=== PATIENT | female | born 1940 | race Caucasian/White ===

== ENCOUNTER 2017-05-13 12:37 | Emergency (ER) | payer MEDICARE, OTHER ==
--- NOTE | 2017-05-13 13:05 | EDM.PDOC ---
ED HPI GENERAL MEDICAL PROBLEM - General Chief Complaint: Back Pain or Injury Stated Complaint: BACK PAIN Time Seen by Provider: 05/13/17 12:59 Source of Information: Reports: Patient, Family (spouse) History Limitations: Reports: No Limitations - History of Present Illness INITIAL COMMENTS - FREE TEXT/NARRATIVE: 77-year-old female reports to the ED with acute onset of right upper quadrant under under the costal margin pain radiating to her right side and into her infrascapular area on the right side and also pain in underneath the lower retrosternal area. This pain came on about 10:00 this morning and is eased up substantially compared to when started. Of note for breakfast this morning which was about 8:30 she had a combination of sausage and eggs ,cheese ,barry i.e. a very fatty diet. She did feel nauseated but never did vomit. She states her bowels work normally this morning. Previous abdominal surgery includes a total abdominal hysterectomy and BSO and likely a coincidental appendectomy. So had a right inguinal hernia repair last year. Has no known heart disease. At the time of my exam pain was pretty well gone. She did appreciate that the pain was worsened by deep breathing when it was at its peak. 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) (None.) Right Lower Back Pain Score (Numeric/FACES): 0 - Related Data Allergies Allergy/AdvReac Type Severity Reaction Status Date / Time No Known Allergies Allergy Verified 05/13/17 12:41 Home Meds: Home Meds Levothyroxine Sodium 88 mcg PO DAILY 09/30/14 [History] [employer] Supplements 1 pkg PO DAILY 09/12/15 [History] Hyoscyamine Sulfate [Levsin-Sl] 0.125 mg SL ASDIRECTED PRN #6 tab.subl 05/13/17 [Rx] Past Medical History Other HEENT History: wear bilateral hearing aids Gastrointestinal History: Reports: GERD Other Genitourinary History: Dribbling, wears pantyliner RN SOCIAL SERVICES History: Reports: Other OB/BYN History: Hysterectomy Endocrine/Metabolic History: Reports: Hypoparathyroidism - Past Surgical History GI Surgical History: Reports: Colonoscopy, Hernia Repair/Other Other Female Surgeries/Procedures: History of prolapse Other Musculoskeletal Surgeries/Procedures:: Left hip surgery Social & Family History - Tobacco Use Smoking Status *Q: Never Smoker Month Tobacco Last Used: 40 YEARS AGO Second Hand Smoke Exposure: No - Caffeine Use Caffeine Use: Reports: Coffee - Alcohol Use Days Per Week of Alcohol Use: 0 Number of Drinks Per Day: 0 Total Drinks Per Week: 0 - Recreational Drug Use Recreational Drug Use: No Drug Use in Last 12 Months: No - Living Situation & Occupation Living situation: Reports: Occupation: Retired ED ROS GENERAL - Review of Systems Review Of Systems: See Below Constitutional: Reports: No Symptoms HEENT: Reports: No Symptoms Respiratory: Reports: No Symptoms Cardiovascular: Reports: Chest Pain Endocrine: Reports: No Symptoms (See history of present illness) GI/Abdominal: Reports: Abdominal Pain (Right upper quadrant abdominal pain radiating around to the right flank along the costal margin and into the epigastrium and lower retrosternal area.), Constipation (Chronic constipation relieved by taking a stool softener daily. Bowels work well today.), Other ( Previous internal hemorrhoid repair.) : Reports: Frequency, Incontinence (Occasional stress-induced incontinence) Musculoskeletal: Reports: Joint Pain Skin: Reports: No Symptoms (Knees hips and neck and low back at times) Neurological: Reports: No Symptoms Psychiatric: Reports: No Symptoms ED EXAM, UPPER BACK/NECK PAIN - Physical Exam Exam: See Below Exam Limited By: No Limitations General Appearance: Alert, WD/WN, No Apparent Distress Eye Exam: Bilateral Eye: Normal Inspection (No jaundice.) Cardiovascular/Respiratory: Regular Rate, Rhythm, No M/R/G, Normal Peripheral Pulses, No JVD, Normal Breath Sounds GI/Abdominal: Normal Bowel Sounds, Soft, No Organomegaly, No Distention, No Abnormal Bruit, No Mass, Tender (Positive Elkins sign.), Other (Slight tympany to percussion throughout the upper abdomen.) Back Exam: Normal Inspection, Full Range of Motion. 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 As Tested, No Motor/Sensory Deficits, Alert, Normal Mood/Affect, Oriented x 3 Psychiatric: Normal Affect, Normal Mood Skin Exam: Normal Color, Warm/Dry Lymphatic: No Adenopathy EKG INTERPRETATION EKG Date: 05/13/17 Time: 13:10 Rhythm: NSR Rate (Beats/Min): 67 [place]: Normal P-Wave: Present QRS: Normal ST-T: Normal QT: Prolonged (Mildly prolonged at 411.) Course - Vital Signs Last Recorded V/S: Last Vital Signs Temp 36.7 C 05/13/17 12:41 Pulse 66 05/13/17 14:36 Resp 12 05/13/17 14:36 BP 130/68 05/13/17 14:36 Pulse Ox 99 05/13/17 14:36 - Orders/Labs/Meds Orders: Active Orders 24 hr Category Date Time Status EKG Documentation Completion [RC] STAT Care 05/13/17 13:00 Active Labs: Laboratory Tests 05/13/17 05/13/17 05/13/17 Range/Units 13:00 13:23 13:23 WBC 3.68 L (3.98-10.04) K/mm3 RBC 3.78 L (3.98-5.22) M/mm3 Hgb 11.8 (11.2-15.7) gm/L Hct 35.0 (34.1-44.9) % MCV 92.6 (79.4-94.8) fl MCH 31.2 (25.6-32.2) pg MCHC 33.7 (32.2-35.5) g/dl RDW Std Deviation 40.0 (36.4-46.3) fL Plt Count 237 (182-369) K/mm3 MPV 9.2 L (9.4-12.3) fl Neutrophils % (Manual) 82 H (40-60) % Band Neutrophils % 1 (0-10) % Lymphocytes % (Manual) 12 L (20-40) % Atypical Lymphs % 0 % Monocytes % (Manual) 5 (2-10) % Eosinophils % (Manual) 0 L (0.7-5.8) % Basophils % (Manual) 0 L (0.1-1.2) Platelet Estimate Adequate RBC Morph Comment Normal Sodium 137 (136-145) mEq/L Potassium 4.0 (3.5-5.1) mEq/L Chloride 103 (98-107) mEq/L Carbon Dioxide 29 (21-32) mEq/L Anion Gap 9.0 (5-15) BUN 16 (7-18) mg/dL Creatinine 1.3 H (0.55-1.02) mg/dL Est Cr Clr Drug Dosing 26.48 mL/min Estimated GFR (MDRD) 40 (>60) mL/min BUN/Creatinine Ratio 12.3 L (14-18) Glucose 146 H (83-115) mg/dL Calcium 9.0 (8.5-10.1) mg/dL Total Bilirubin 0.3 (0.2-1.0) mg/dL AST 16 (15-37) U/L ALT 20 (14-59) U/L Alkaline Phosphatase 71 (46-116) U/L CK-MB (CK-2) 0.9 (0-3.6) ng/ml Troponin I < 0.017 (0.00-0.056) ng/mL C-Reactive Protein < 0.2 (<1.0) mg/dL Total Protein 6.4 (6.4-8.2) g/dl Albumin 3.4 (3.4-5.0) g/dl Globulin 3.0 gm/dL Albumin/Globulin Ratio 1.1 (1-2) Amylase 104 (20-160) U/L Urine Color Yellow (Yellow) Urine Appearance Clear (Clear) Urine pH 6.0 (5.0-8.0) Ur Specific [place] 1.015 (1.005-1.030) Urine Protein Negative (Negative) Urine Glucose (UA) Negative (Negative) Urine Ketones Negative (Negative) Urine Occult Blood Negative (Negative) Urine Nitrite Negative (Negative) Urine Bilirubin Negative (Negative) Urine Urobilinogen 0.2 (0.2-1.0) Ur Leukocyte Esterase Negative (Negative) Urine RBC 0-5 (0-5) /hpf Urine WBC 0-5 (0-5) /hpf Ur Epithelial Cells 0-5 (0-5) /hpf Urine Bacteria Few (FEW) /hpf Urine Mucus Not seen (FEW) /hpf - Radiology Interpretation Free Text/Narrative:: 77-year-old female presents to the ED with acute onset of right upper quadrant abdominal pain radiating into the retrosternal area as well as along the right costal margin into her right infrascapular area. This pain came on about 10:00 this morning and subsequently has eased up completely. It lasted for a good 2 and half hours. Of note for breakfast this morning she had a very fatty diet consisting of barry and eggs and sausage and cheese etc. She does not know she has gallstones. Clinically she suffered a gallbladder attack. Routine labs including an amylase and CRP will be done. Troponins ECG will be done as well. I will do a bedside ultrasound on her gallbladder. - Re-Assessments/Exams Free Text/Narrative Re-Assessment/Exam: 05/13/17 13:18 bedside ultrasound revealed at least 3 small stones within her gallbladder. Her pain was gone and therefore she will not be administered a medications. Awaiting on urinalysis and lab. 05/13/17 14:18 chemistry is all normal including normal liver function normal amylase and normal troponin. Creatinine is 1.3 within EGFR of only 40. Patient be discharged home with a prescription for Levsin tablets 0.125 mg sublingually when necessary for similar type pain. She'll follow-up with her personal care provider if further similar problems occur. Advised fat-free diet for the next 2 days and then very low fat diet after this. Departure - Departure Time of Disposition: 14:25 Disposition: Home, Self-Care 01 Condition: Fair Clinical Impression: Biliary colic symptom - Discharge Information Prescriptions: Hyoscyamine Sulfate [Levsin-Sl] 0.125 mg SL ASDIRECTED PRN #6 tab.subl PRN Reason: Biliary colic Instructions: Biliary Colic Referrals: Danilo Lala MD [Primary Care Provider] - Forms: ED Department Discharge Additional Instructions: Evaluation in the emergency department today in regards to development of severe pain right upper anterior quadrant of the chest lateral chest wal and into the back under the shoulder blade as well as retrosternally under the breast bone. This occurred approximately an hour and a half after eating a fairly high fatty meal. Symptoms are pretty well dissipated by the time he came to the hospital. Symptoms lasted a good 2+ hours. Symptoms are that of gallbladder attack. Bedside ultrasound identified 2-3 small stones within the gallbladder. Lab work done ruled out any sign of heart related illness. ECG was also normal. Liver function and pancreas function are also normal. Therefore at this time advise low-fat diet be careful taking in too much fats at one time. Certainly no fats for the next few days. Carbohydrates such as sugars fruits past etc. are okay. Similar problems occur than a formal ultrasound needs to be carried out in the radiology department where they can take pictures. Gallbladder does not need to be removed just because it has stones but only did continues to give you similar type problems. I did write a prescription for medication called Levsin that can be taken under the tongue for relief of this type of pain. The pain is not gone in 5-10 minutes after taking the first tablet may repeat a second tablet. More than 2 tablets will not help. If the pain is severe or vomiting occurs that he would need to come to the hospital for IV medications to relieve the pain. - My Orders Last 24 Hours: My Active Orders 05/13/17 13:00 EKG Documentation Completion [RC] STAT - Assessment/Plan Last 24 Hours: My Active Orders 05/13/17 13:00 EKG Documentation Completion [RC] STAT
[2017-05-13 14:38] VITALS: BP 130/68
== END 2017-05-13 14:38 | disposition home or self-care (01) ==
LOC: JD.ED 12:37
DX: K83.9 Disease of biliary tract, unspecified (principal); K21.9 Gastro-esophageal reflux disease without esophagitis; E20.9 Hypoparathyroidism, unspecified; Z90.710 Acquired absence of both cervix and uterus; Z79.899 Other long term (current) drug therapy
CPT/HCPCS: 36415; 80053; 81001; 82150; 82553; 84484; 85025; 86140; 93005; 99284; 99284-25

== ENCOUNTER 2019-11-19 08:07 | Day surgery (SDC) | payer MEDICARE, OTHER ==
[~2019-11-19 08:07] MED LIST: Lactated Ringers 1,000 ML IV SCH; Lidocaine 1%/Sod Bicarbonate in NS 8.4% 1 ML Syringe IDERM PRN; Sodium Chloride 0.9% 10 ML Syringe FLUSH PRN
[2019-11-19] MEDS ORDERED: Lidocaine 1% 4 ML ONE (08:13)
[2019-11-19] MEDS ORDERED: ceFAZolin 1 GM Vial ONE (08:13)
[2019-11-19] MEDS ORDERED: Lactated Ringers 1,000 ML ONE (08:13)
[2019-11-19] MEDS ORDERED: Rocuronium 50 MG/5 ML Vial ONE (08:13)
[2019-11-19] MEDS ORDERED: Ondansetron 4 MG/2 ML SDV ONE (08:13)
[2019-11-19] MEDS ORDERED: Dexamethasone 4 MG/ML 5 ML MDV ONE (08:14)
[2019-11-19] MEDS ORDERED: Midazolam 1 MG/ML 2 ML SDV ONE (08:14)
[2019-11-19] MEDS ORDERED: fentaNYL 250 MCG/5 ML SDV ONE (08:14)
[2019-11-19] MEDS ORDERED: Ketorolac 15 MG/ML SDV ONE (08:14)
[2019-11-19] MEDS ORDERED: Propofol 200 MG/20 ML SDV ONE (08:14)
[2019-11-19] MEDS ORDERED: Lidocaine 1% with EPINEPHrine 1:100,000 20 ML MDV ONE (08:19)
[2019-11-19] MEDS ORDERED: Sodium Chloride 0.9% 50 ML SDV ONE (08:19)
--- NOTE | 2019-11-19 08:56 | PCM.PREANE ---
Preanesthetic Assessment - Anesthesia/Transfusion/Family Hx Anesthesia History: Prior Anesthesia Without Reaction Family History of Anesthesia Reaction: No - Review of Systems General: No Symptoms Pulmonary: No Symptoms Cardiovascular: No Symptoms, Other (4 MET equivalent or greater. Hypertension controlled with medications. ) Gastrointestinal: Other (Occasional Heartburn) Neurological: No Symptoms Other: Reports: None, Thyroid Problems, Anxiety - Physical Assessment NPO Status Date: 11/18/19 NPO Status Time: 21:30 Vital Signs: Last Vital Signs Temp 36.3 C 11/19/19 08:20 Pulse 62 11/19/19 08:20 Resp 16 11/19/19 08:20 BP 138/64 11/19/19 08:20 Pulse Ox 96 11/19/19 08:20 Height: 1.55 m Weight: 54.431 kg ASA Class: 2 Mental Status: Alert & Oriented x3 Airway Class: Mallampati = 2 Dentition: Reports: Dentures Thyro-Mental Finger Breadths: 2 Mouth Opening Finger Breadths: 3 ROM/Head Extension: Full Lungs: Clear to Auscultation, Normal Respiratory Effort Cardiovascular: Regular Rate, Regular Rhythm - Imaging/EKG Impressions: EKG SR 63bpm, Borderline Left [place] deviation. - Allergies Allergies/Adverse Reactions: Allergies Allergy/AdvReac Type Severity Reaction Status Date / Time No Known Allergies Allergy Verified 11/18/19 16:13 - Acknowledgements Anesthesia Type Planned: General Anesthesia Pt an Appropriate Candidate for the Planned Anesthesia: Yes Alternatives and Risks of Anesthesia Discussed w Pt/Guardian: Yes Pt/Guardian Understands and Agrees with Anesthesia Plan: Yes PreAnesthesia Questionnaire HEENT History: Reports: Impaired Vision Other HEENT History: wear bilateral hearing aids, has glasses, has dentures Cardiovascular History: Reports: Hypertension Respiratory History: Reports: None Gastrointestinal History: Reports: Chronic Constipation, Diverticulosis, GERD, Helicobacter Pylori Other Genitourinary History: rectocele, cystocele, frequency 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 OB/BYN History: post menopausal atrophic vaginitis, pelvic pressure Musculoskeletal History: Reports: Osteoporosis Neurological History: Reports: None Psychiatric History: Reports: Anxiety Endocrine/Metabolic History: Reports: Hypoparathyroidism, Osteopenia Hematologic History: Reports: Anemia Immunologic History: Reports: None Oncologic (Cancer) History: Reports: Basal Cell Carcinoma Other Oncologic History: on nose Dermatologic History: Reports: None - Past Surgical History HEENT Surgical History: Reports: Oral Surgery, Tonsillectomy Respiratory Surgical History: Reports: None GI Surgical History: Reports: Colonoscopy, Hernia Repair/Other Female Surgical History: Reports: Hysterectomy Other Female Surgeries/Procedures: History of prolapse Endocrine Surgical History: Reports: None Neurological Surgical History: Reports: None Musculoskeletal Surgical History: Reports: ORIF Other Musculoskeletal Surgeries/Procedures:: Left hip surgery Oncologic Surgical History: Reports: None Dermatological Surgical History: Reports: None - SUBSTANCE USE Smoking Status *Q: Former Smoker Recreational Drug Use History: No - HOME MEDS Home Medications: Home Meds Levothyroxine Sodium 88 mcg PO DAILY 09/30/14 [History] Sennosides/Docusate Sodium [Senna-S Laxative Tablet] 1 tab PO BID 07/27/18 [ History] Acetaminophen [Tylenol] 650 mg PO Q6H PRN 11/18/19 [History] Calcium Carbonate/Vitamin D3 [Calcium 600 + Vit D 200] 1 tab PO DAILY 11/18/19 [ History] Estradiol [Estrace] 1 dose VAG Q72H 11/18/19 [History] Lactobacillus Combination No.4 [Probiotic] 1 cap PO DAILY 11/18/19 [History] Multivitamin [Zoo Chews] 1 tab PO DAILY 11/18/19 [History] Vitamin B Complex 1 cap PO DAILY 11/18/19 [History] amLODIPine Besylate [Amlodipine Besylate] 5 mg PO DAILY 11/18/19 [History] - CURRENT (IN HOUSE) MEDS Current Meds: Current Medications Lactated Ringer's (Ringers, Lactated) 1,000 mls @ 125 mls/hr IV ASDIRECTED ANKUR Stop: 11/19/19 23:00 Lidocaine/Sodium Bicarbonate (Buffered Lidocaine 1% In Ns 8.4%) 0.25 ml IDERM ONETIME PRN PRN Reason: Prior to IV Start Stop: 11/19/19 18:00 Sodium Chloride (Saline Flush) 10 ml FLUSH ASDIRECTED PRN PRN Reason: Keep Vein Open Stop: 11/19/19 18:00 Discontinued Medications Cefazolin Sodium (Ancef) Confirm Administered Dose 2 gm .ROUTE .STK-MED ONE Stop: 11/19/19 08:14 Dexamethasone (Dexamethasone) Confirm Administered Dose 20 mg .ROUTE .STK-MED ONE Stop: 11/19/19 08:15 Fentanyl (Sublimaze) Confirm Administered Dose 250 mcg .ROUTE .STK-MED ONE Stop: 11/19/19 08:15 Lidocaine HCl (Xylocaine-Mpf 1%) Confirm Administered Dose 4 mls @ as directed .ROUTE .ST-MED ONE Stop: 11/19/19 08:14 Lactated Ringer's (Ringers, Lactated) Confirm Administered Dose 1,000 mls @ as directed .ROUTE .ST-MED ONE Stop: 11/19/19 08:14 Ketorolac Tromethamine (Toradol) Confirm Administered Dose 15 mg .ROUTE .ST- MED ONE Stop: 11/19/19 08:15 Lidocaine/Epinephrine (Xylocaine 1% With Epinephrine 1:100,000) Confirm Administered Dose 20 ml .ROUTE .ST-MED ONE Stop: 11/19/19 08:20 Midazolam HCl (Versed 1 Mg/Ml) Confirm Administered Dose 2 mg .ROUTE .ST-MED ONE Stop: 11/19/19 08:15 Ondansetron HCl (Zofran) Confirm Administered Dose 4 mg .ROUTE .ST-MED ONE Stop: 11/19/19 08:14 Propofol (Diprivan 20 Ml) Confirm Administered Dose 400 mg .ROUTE .STK-MED ONE Stop: 11/19/19 08:15 Rocuronium [place] (Zemuron) Confirm Administered Dose 50 mg .ROUTE .ST-MED ONE Stop: 11/19/19 08:14 Sodium Chloride (Normal Saline) Confirm Administered Dose 50 ml .ROUTE .ST-MED ONE Stop: 11/19/19 08:20
[2019-11-19] MEDS ORDERED: ePHEDrine/Normal Saline 25 MG/5 ML Syringe ONE (09:52)
[2019-11-19] MEDS ORDERED: fentaNYL 100 MCG/2 ML SDV IVPUSH PRN (10:39)
[2019-11-19] MEDS ORDERED: HYDROmorphone 0.5 MG/0.5 ML Syringe IVPUSH PRN (10:39)
[2019-11-19] MEDS ORDERED: Ondansetron 4 MG/2 ML SDV IVPUSH PRN (10:39)
--- NOTE | 2019-11-19 11:24 | PCM.POSTAN ---
POST ANESTHESIA ASSESSMENT - MENTAL STATUS Mental Status: Alert, Oriented - VITAL SIGNS Vital Signs: Last Vital Signs Temp 36.3 C 11/19/19 08:20 Pulse 62 11/19/19 08:20 Resp 16 11/19/19 08:20 BP 138/64 11/19/19 08:20 Pulse Ox 96 11/19/19 08:20 1117 141/66 78 9 100% 97F - RESPIRATORY Respiratory Status: Respiratory Rate WNL, Airway Patent, O2 Saturation Stable, Supplemental Oxygen - CARDIOVASCULAR CV Status: Pulse Rate WNL, Blood Pressure Stable - GASTROINTESTINAL GI Status: No Symptoms - PAIN Pain Score: 0 - POST OP HYDRATION Hydration Status: Adequate & Stable
--- NOTE | 2019-11-19 11:31 | PCM.OPNOTE ---
- General Post-Op/Procedure Note Date of Surgery/Procedure: 11/19/19 Operative Procedure(s): Anterior posterior colporraphy Pre Op Diagnosis: Rectocele, cystocele, atrophic vagina, pelvic pressure Post-Op Diagnosis: Same Anesthesia Technique: General ET Tube Primary Surgeon: Franklin Stoddard Secondary Surgeon: Mian Miller Anesthesia Provider: Berenice Shelby Reason Business Applications Analyst Was Necessary: Assist in surgery, decrease comorbidity and mortality. Role of Business Applications Analyst: Assist in surgery, decrease comorbidity and mortality. Fluid Replacement, Intraop: 1,300 EBL in mLs: 10 Drain/Tube Comments:: None Condition: Good Free Text/Narrative:: The patient was transported to operating room in medical office building and placed under general anesthesia with endotracheal intubation. She was placed in the low dorsolithotomy position, prepared and draped in a sterile fashion. Timeout performed confirming name, date of , and procedures anterior and posterior colporrhaphy with no mid urethral sling at this time. The apex of the vagina was grasped and injecting 0.25% Marcaine with epinephrine the vaginal mucosa for dissection and hemostasis. A transverse inverted T incision was made at the apex of the vagina and utilizing some balm scissors undermining the vaginal mucosa to the cystourethral angle which had been marked with a Allis clamp. Dissecting the cystoscopy vaginal tissue away on the vaginal mucosa the cystocele was reduced. Beginning at the cystourethral angle and proceeding towards the apex of the vagina plication sutures with 0 Monocryl were placed. None of vaginal mucosa was excised and the remaining vaginal mucosa was approximated with 3-0 Monocryl. Was then turned towards the posterior repair (colporrhaphy) a dada-shaped incision was made after injecting Marcaine 0.25% with lidocaine for hydrodissection and hemostasis. The apex of the rectocele was marked with a Allis clamp and utilizing Metzenbaum scissors undermining the vaginal mucosa to the marked Allis clamp. The rectovaginal tissue was dissected away from the vaginal mucosa and reducing the rectocele plication sutures were then placed beginning at the apex of the vagina and proceeding towards the external vagina. The redundant vaginal mucosa was excised utilizing 3-0 Monocryl running suture beginning at the apex of the vagina until the area approximately 1 cm before the introitus. The perineoplasty was then performed with 0 Monocryl mattress sutures approximating the tissue and elongating the vagina. The vaginal mucosa was then approximated to the introitus and suture placed below the introitus and at the apex of the perineal incision subcuticular suture closure was performed to the introitus and returning under the introitus to plication sutures placed just inside the vagina. 200 mL of saline instilled into the bladder with a red Unger catheter. Sponge needle pack instrument and sharp count correct x2. The patient was transported to postanesthesia care unit in satisfactory condition. No blood transfusions were required. I talked with the patient's daughter and and all questions answered to their voiced satisfaction. Because patient lives 30 miles away patient will be kept on extended recovery tonight to watch for bleeding, urinary retention, and for pain management. This note was created, at least in part, by the use of [employer] voice dictation system. Inadvertent typographical errors, due to software recognition problems, may exist.
--- NOTE | 2019-11-19 11:38 | PCM48HPAN ---
Post Anesthesia Note - EVALUATION WITHIN 48HRS OF ANESTHETIC Vital Signs in Normal Range: Yes Patient Participated in Evaluation: Yes Respiratory Function Stable: Yes Airway Patent: Yes Cardiovascular Function Stable: Yes Hydration Status Stable: Yes Pain Control Satisfactory: Yes (toradol given) Nausea and Vomiting Control Satisfactory: Yes Mental Status Recovered: Yes Vital Signs: Last Vital Signs Temp 97.0 F 11/19/19 11:17 Pulse 62 11/19/19 08:20 Resp 16 11/19/19 11:30 BP 143/68 H 11/19/19 11:30 Pulse Ox 100 11/19/19 11:30
--- NOTE | 2019-11-19 14:19 | PCM48HPAN ---
Post Anesthesia Note - EVALUATION WITHIN 48HRS OF ANESTHETIC Vital Signs in Normal Range: Yes Patient Participated in Evaluation: Yes Respiratory Function Stable: Yes Airway Patent: Yes Cardiovascular Function Stable: Yes Hydration Status Stable: Yes Pain Control Satisfactory: Yes Nausea and Vomiting Control Satisfactory: Yes Mental Status Recovered: Yes Vital Signs: Last Vital Signs Temp 36.2 C 11/19/19 12:00 Pulse 65 11/19/19 13:30 Resp 12 11/19/19 13:30 BP 128/60 11/19/19 13:30 Pulse Ox 97 11/19/19 13:30
[2019-11-19] MEDS: Acetaminophen 325 MG Tab PO PRN (14:59)
--- NOTE | 2019-11-19 16:03 | PCM.SN ---
- Free Text/Narrative Note: Patient alert, scant vaginal bleeding (normal). Has voided twice and feels like she is emptying bladder. No leg cramping. Patient lives >30 miles from hospital. Extended recovery for voiding and to make sure no retention, or heavy vaginal bleeding, and pain management if needed. Miralax once daily 17 grams. Colace 100 mg bid. Resumed home meds. Regular diet, has ordered food. Stable.
[2019-11-19] MEDS ORDERED: Polyethylene Glycol 3350 Powder 17 GM Packet PO ONE (16:15)
[2019-11-19] MEDS: Ibuprofen 600 MG Tab PO PRN (20:10)
[2019-11-19] MEDS: Docusate Sodium 100 MG Cap PO SCH (20:10)
[2019-11-20] MEDS: Acetaminophen 325 MG Tab PO PRN (00:45)
[2019-11-20] MEDS ORDERED: Levothyroxine 88 MCG Tab PO SCH (06:00)
[2019-11-20] MEDS: Ibuprofen 600 MG Tab PO PRN (06:09)
--- NOTE | 2019-11-20 07:49 | PCM.DCSUM1 ---
Discharge Summary - Hospital Course Free Text/Narrative:: [facility] ([facility] Post-Op/Procedure Note Patient Name: AMBREEN EDWARD Date of : 1940 Patient Status: Surgical Day Care Attending Provider: Franklin Stoddard Date: 11/19/19 11:24 Initialization Date: 11/19/19 11:24 - General Post-Op/Procedure Note Date of Surgery/Procedure: 11/19/19 Operative Procedure(s): Anterior posterior colporraphy Pre Op Diagnosis: Rectocele, cystocele, atrophic vagina, pelvic pressure Post-Op Diagnosis: Same Anesthesia Technique: General ET Tube Primary Surgeon: Franklin Stoddard Secondary Surgeon: Mian Miller Anesthesia Provider: Berenice Shelby Reason Speeder Tender Was Necessary: Assist in surgery, decrease comorbidity and mortality. Role of Speeder Tender: Assist in surgery, decrease comorbidity and mortality. Fluid Replacement, Intraop: 1,300 EBL in mLs: 10 Drain/Tube Comments:: None Condition: Good Free Text/Narrative:: The patient was transported to operating room in medical office building and placed under general anesthesia with endotracheal intubation. She was placed in the low dorsolithotomy position, prepared and draped in a sterile fashion. Timeout performed confirming name, date of , and procedures anterior and posterior colporrhaphy with no mid urethral sling at this time. The apex of the vagina was grasped and injecting 0.25% Marcaine with epinephrine the vaginal mucosa for dissection and hemostasis. A transverse inverted T incision was made at the apex of the vagina and utilizing some balm scissors undermining the vaginal mucosa to the cystourethral angle which had been marked with a Allis clamp. Dissecting the cystoscopy vaginal tissue away on the vaginal mucosa the cystocele was reduced. Beginning at the cystourethral angle and proceeding towards the apex of the vagina plication sutures with 0 Monocryl were placed. None of vaginal mucosa was excised and the remaining vaginal mucosa was approximated with 3-0 Monocryl. Was then turned towards the posterior repair (colporrhaphy) a dada-shaped incision was made after injecting Marcaine 0.25% with lidocaine for hydrodissection and hemostasis. The apex of the rectocele was marked with a Allis clamp and utilizing Metzenbaum scissors undermining the vaginal mucosa to the marked Allis clamp. The rectovaginal tissue was dissected away from the vaginal mucosa and reducing the rectocele plication sutures were then placed beginning at the apex of the vagina and proceeding towards the external vagina. The redundant vaginal mucosa was excised utilizing 3-0 Monocryl running suture beginning at the apex of the vagina until the area approximately 1 cm before the introitus. The perineoplasty was then performed with 0 Monocryl mattress sutures approximating the tissue and elongating the vagina. The vaginal mucosa was then approximated to the introitus and suture placed below the introitus and at the apex of the perineal incision subcuticular suture closure was performed to the introitus and returning under the introitus to plication sutures placed just inside the vagina. 200 mL of saline instilled into the bladder with a red Unger catheter. Sponge needle pack instrument and sharp count correct x2. The patient was transported to postanesthesia care unit in satisfactory condition. No blood transfusions were required. I talked with the patient's daughter and and all questions answered to their voiced satisfaction. Because patient lives [place] patient will be kept on extended recovery tonight to watch for bleeding, urinary retention, and for pain management. This note was created, at least in part, by the use of [employer] voice dictation system. Inadvertent typographical errors, due to software recognition problems, may exist. HPI Initial Comments: [facility] ([facility] Post-Op/Procedure Note Patient Name: AMBREEN EDWARD Date of : 1940 Patient Status: Surgical Day Care Attending Provider: Franklin Stoddard Date: 11/19/19 11:24 Initialization Date: 11/19/19 11:24 - General Post-Op/Procedure Note Date of Surgery/Procedure: 11/19/19 Operative Procedure(s): Anterior posterior colporraphy Pre Op Diagnosis: Rectocele, cystocele, atrophic vagina, pelvic pressure Post-Op Diagnosis: Same Anesthesia Technique: General ET Tube Primary Surgeon: Franklin Stoddard Secondary Surgeon: Mian Miller Anesthesia Provider: Berenice Shelby Reason Speeder Tender Was Necessary: Assist in surgery, decrease comorbidity and mortality. Role of Speeder Tender: Assist in surgery, decrease comorbidity and mortality. Fluid Replacement, Intraop: 1,300 EBL in mLs: 10 Drain/Tube Comments:: None Condition: Good Free Text/Narrative:: The patient was transported to operating room in medical office building and placed under general anesthesia with endotracheal intubation. She was placed in the low dorsolithotomy position, prepared and draped in a sterile fashion. Timeout performed confirming name, date of , and procedures anterior and posterior colporrhaphy with no mid urethral sling at this time. The apex of the vagina was grasped and injecting 0.25% Marcaine with epinephrine the vaginal mucosa for dissection and hemostasis. A transverse inverted T incision was made at the apex of the vagina and utilizing some balm scissors undermining the vaginal mucosa to the cystourethral angle which had been marked with a Allis clamp. Dissecting the cystoscopy vaginal tissue away on the vaginal mucosa the cystocele was reduced. Beginning at the cystourethral angle and proceeding towards the apex of the vagina plication sutures with 0 Monocryl were placed. None of vaginal mucosa was excised and the remaining vaginal mucosa was approximated with 3-0 Monocryl. Was then turned towards the posterior repair (colporrhaphy) a dada-shaped incision was made after injecting Marcaine 0.25% with lidocaine for hydrodissection and hemostasis. The apex of the rectocele was marked with a Allis clamp and utilizing Metzenbaum scissors undermining the vaginal mucosa to the marked Allis clamp. The rectovaginal tissue was dissected away from the vaginal mucosa and reducing the rectocele plication sutures were then placed beginning at the apex of the vagina and proceeding towards the external vagina. The redundant vaginal mucosa was excised utilizing 3-0 Monocryl running suture beginning at the apex of the vagina until the area approximately 1 cm before the introitus. The perineoplasty was then performed with 0 Monocryl mattress sutures approximating the tissue and elongating the vagina. The vaginal mucosa was then approximated to the introitus and suture placed below the introitus and at the apex of the perineal incision subcuticular suture closure was performed to the introitus and returning under the introitus to plication sutures placed just inside the vagina. 200 mL of saline instilled into the bladder with a red Unger catheter. Sponge needle pack instrument and sharp count correct x2. The patient was transported to postanesthesia care unit in satisfactory condition. No blood transfusions were required. I talked with the patient's daughter and and all questions answered to their voiced satisfaction. Because patient lives 30 miles away patient will be kept on extended recovery tonight to watch for bleeding, urinary retention, and for pain management. This note was created, at least in part, by the use of [employer] voice dictation system. Inadvertent typographical errors, due to software recognition problems, may exist. Brief History: [facility] ([facility] . Post-Op/Procedure Note. Patient Name: AMBREEN EDWARD AMedical Record Number: [id number]. Date of : 1939Patient Status: Surgical Day Care. Attending Provider: Franklin Stoddardccount Number: [id number]. Date: 11/19/19 11:24Initialization Date: 08/28 11:24. - General Post-Op/Procedure Note. Date of Surgery/Procedure: 08/28. Operative Procedure(s): Anterior posterior colporraphy. Pre Op Diagnosis: Rectocele, cystocele, atrophic vagina, pelvic pressure. Post-Op Diagnosis: Same. Anesthesia Technique: General ET Tube. Primary Surgeon: Franklin Stoddard. Secondary Surgeon: Mian Miller. Anesthesia Provider: Berenice Shelby. Reason Speeder Tender Was Necessary: Assist in surgery, decrease comorbidity and mortality. Role of Speeder Tender: Assist in surgery, decrease comorbidity and mortality. Fluid Replacement, Intraop: 1,300. EBL in mLs: 10. Drain/Tube Comments:: None. Condition: Good. Free Text/Narrative:: The patient was transported to operating room in medical office building and placed under general anesthesia with endotracheal intubation. She was placed in the low dorsolithotomy position, prepared and draped in a sterile fashion. Timeout performed confirming name, date of , and procedures anterior and posterior colporrhaphy with no mid urethral sling at this time. The apex of the vagina was grasped and injecting 0.25% Marcaine with epinephrine the vaginal mucosa for dissection and hemostasis. A transverse inverted T incision was made at the apex of the vagina and utilizing some balm scissors undermining the vaginal mucosa to the cystourethral angle which had been marked with a Allis clamp. Dissecting the cystoscopy vaginal tissue away on the vaginal mucosa the cystocele was reduced. Beginning at the cystourethral angle and proceeding towards the apex of the vagina plication sutures with 0 Monocryl were placed. None of vaginal mucosa was excised and the remaining vaginal mucosa was approximated with 3-0 Monocryl. Was then turned towards the posterior repair ( colporrhaphy) a dada-shaped incision was made after injecting Marcaine 0.25% with lidocaine for hydrodissection and hemostasis. The apex of the rectocele was marked with a Allis clamp and utilizing Metzenbaum scissors undermining the vaginal mucosa to the marked Allis clamp. The rectovaginal tissue was dissected away from the vaginal mucosa and reducing the rectocele plication sutures were then placed beginning at the apex of the vagina and proceeding towards the external vagina. The redundant vaginal mucosa was excised utilizing 3-0 Monocryl running suture beginning at the apex of the vagina until the area approximately 1 cm before the introitus. The perineoplasty was then performed with 0 Monocryl mattress sutures approximating the tissue and elongating the vagina. The vaginal mucosa was then approximated to the introitus and suture placed below the introitus and at the apex of the perineal incision subcuticular suture closure was performed to the introitus and returning under the introitus to plication sutures placed just inside the vagina. 200 mL of saline instilled into the bladder with a red Unger catheter. Sponge needle pack instrument and sharp count correct x2. The patient was transported to postanesthesia care unit in satisfactory condition. No blood transfusions were required. I talked with the patient's daughter and and all questions answered to their voiced satisfaction. Because patient lives 30 miles away patient will be kept on extended recovery tonight to watch for bleeding, urinary retention, and for pain management. This note was created, at least in part, by the use of [employer] voice dictation system. Inadvertent typographical errors, due to software recognition problems, may exist. Diagnosis: Stroke: No - Discharge Data Discharge Date: 11/20/19 Discharge Disposition: Home, Self-Care 01 Condition: Good - Referral to Home Health Primary Care Physician: Danilo Lala MD - Discharge Diagnosis/Problem(s) (1) Cystocele, midline SNOMED Code(s): 984788420 ICD Code: N81.11 - CYSTOCELE, MIDLINE Status: Acute Current Visit: Yes (2) Rectocele SNOMED Code(s): 872174401 ICD Code: N81.6 - RECTOCELE Status: Acute Current Visit: Yes (3) Pelvic pressure in female SNOMED Code(s): 475539144 ICD Code: R10.2 - PELVIC AND PERINEAL PAIN Status: Acute Current Visit: Yes (4) Atrophy of vagina Status: Acute Current Visit: Yes - Patient Summary/Data Operative Procedure(s) Performed: Anterior posterior colporraphy Complications: none Consults: none Hospital Course: uneventful - Patient Instructions Diet: Usual Diet as Tolerated Driving: Do Not Drive (X2 weeks) Showering/Bathing: May Shower, No Tub Bathing/Swimming (6 weeks) Notify Provider of: Fever, Increased Pain, Drainage, Nausea and/or Vomiting - Discharge Plan *PRESCRIPTION DRUG MONITORING PROGRAM REVIEWED*: Not Applicable *COPY OF PRESCRIPTION DRUG MONITORING REPORT IN PATIENT ERIC: Not Applicable Prescriptions/Med Rec: Docusate Sodium [Colace] 100 mg PO BID #60 capsule Ibuprofen [Motrin] 600 mg PO Q6H PRN #50 tab PRN Reason: Pain Home Medications: Home Meds Levothyroxine Sodium 88 mcg PO DAILY 09/30/14 [History] Acetaminophen [Tylenol] 650 mg PO Q6H PRN 11/18/19 [History] Calcium Carbonate/Vitamin D3 [Calcium 600 + Vit D 200] 1 tab PO DAILY 11/18/19 [ History] Estradiol [Estrace] 1 dose VAG Q72H 11/18/19 [History] Lactobacillus Combination No.4 [Probiotic] 1 cap PO DAILY 11/18/19 [History] Multivitamin [Zoo Chews] 1 tab PO DAILY 11/18/19 [History] Vitamin B Complex 1 cap PO DAILY 11/18/19 [History] amLODIPine Besylate [Amlodipine Besylate] 5 mg PO DAILY 11/18/19 [History] Docusate Sodium [Colace] 100 mg PO BID #60 capsule 11/19/19 [Rx] Ibuprofen [Motrin] 600 mg PO Q6H PRN #50 tab 11/19/19 [Rx] Polyethylene Glycol 3350 [Clearlax] 119 gm PO DAILY 11/19/19 [History] Patient Handouts: Anterior and Posterior Colporrhaphy, Care After Referrals: Franklin Stoddard MD [Physician] - 12/03/19 2:30 pm (Please follow up with Dr. Stoddard at at 2:30pm at [facility]) - Discharge Summary/Plan Comment DC Time >30 min.: No - Patient Data Vitals - Most Recent: Last Vital Signs Temp 97.7 F 11/20/19 00:08 Pulse 69 11/20/19 06:05 Resp 16 11/20/19 00:08 BP 124/60 11/20/19 06:05 Pulse Ox 96 11/20/19 06:05 Weight - Most Recent: 120 lb Lab Results - Last 24 hrs: Laboratory Results - last 24 hr 11/19/19 11/19/19 11/19/19 Range/Units 08:45 08:45 08:45 WBC 3.85 L (3.98-10.04) K/mm3 RBC 4.14 (3.98-5.22) M/mm3 Hgb 13.6 D (11.2-15.7) gm/dl Hct 39.9 (34.1-44.9) % MCV 96.4 H D (79.4-94.8) fl MCH 32.9 H (25.6-32.2) pg MCHC 34.1 (32.2-35.5) g/dl RDW Std Deviation 41.9 (36.4-46.3) fL Plt Count 198 (182-369) K/mm3 MPV 9.0 L (9.4-12.3) fl Neut % (Auto) 56.1 (34.0-71.1) % Lymph % (Auto) 28.3 (19.3-51.7) % Baxter % (Auto) 13.0 H (4.7-12.5) % Eos % (Auto) 1.6 (0.7-5.8) Baso % (Auto) 1.0 (0.1-1.2) % Neut # (Auto) 2.16 (1.56-6.13) K/mm3 Lymph # (Auto) 1.09 L (1.18-3.74) K/mm3 Baxter # (Auto) 0.50 H (0.24-0.36) K/mm3 Eos # (Auto) 0.06 (0.04-0.36) K/mm3 Baso # (Auto) 0.04 (0.01-0.08) K/mm3 Sodium 141 (136-145) mEq/L Potassium 3.8 (3.5-5.1) mEq/L Chloride 104 (98-107) mEq/L Carbon Dioxide 29 (21-32) mEq/L Anion Gap 11.8 (5-15) BUN 15 (7-18) mg/dL Creatinine 0.9 (0.55-1.02) mg/dL Est Cr Clr Drug Dosing 36.99 mL/min Estimated GFR (MDRD) > 60 (>60) mL/min BUN/Creatinine Ratio 16.7 (14-18) Glucose 88 (83-115) mg/dL Calcium 8.8 (8.5-10.1) mg/dL Total Bilirubin 0.5 (0.2-1.0) mg/dL AST 19 (15-37) U/L ALT 25 (14-59) U/L Alkaline Phosphatase 61 (46-116) U/L Total Protein 6.6 (6.4-8.2) g/dl Albumin 3.5 (3.4-5.0) g/dl Globulin 3.1 gm/dL Albumin/Globulin Ratio 1.1 (1-2) Blood Type O NEGATIVE Gel Antibody Screen Negative Med Orders - Current: Current Medications Acetaminophen (Tylenol) 650 mg PO Q6H PRN PRN Reason: Pain Last Admin: 11/20/19 00:45 Dose: 650 mg Amlodipine Besylate (Norvasc) 5 mg PO DAILY [facility] Calcium Carbonate (Calcium Carbonate/Vitamin D 600 Mg-200 Unit) 1 tab PO DAILY [facility] Docusate Sodium (Colace) 100 mg PO BID [facility] Last Admin: 11/19/19 20:10 Dose: 100 mg Ibuprofen (Motrin) 600 mg PO Q6H PRN PRN Reason: Pain Last Admin: 11/20/19 06:09 Dose: 600 mg Levothyroxine Sodium (Synthroid) 88 mcg PO ACBREAKFAST [facility] Last Admin: 11/20/19 06:08 Dose: 88 mcg Multivitamins (Thera) 1 each PO DAILY [facility] Estradiol 0.01% (Cream) 0 each VAG Q72H [facility] Polyethylene Glycol (Miralax) 17 gm PO DAILY [facility] Saccharomyces Boulardii (Florastor) 250 mg PO DAILY [facility] Vitamin B Complex/Vitamin C (Super B With Vitamin C) 1 cap PO DAILY [facility] Discontinued Medications Cefazolin Sodium (Ancef) Confirm Administered Dose 2 gm .ROUTE .STK-MED ONE Stop: 11/19/19 08:14 Dexamethasone (Dexamethasone) Confirm Administered Dose 20 mg .ROUTE .STK-MED ONE Stop: 11/19/19 08:15 Ephedrine Sulfate (Ephedrine In Ns) Confirm Administered Dose 25 mg .ROUTE .STK- MED ONE Stop: 11/19/19 09:53 Fentanyl (Sublimaze) Confirm Administered Dose 250 mcg .ROUTE .STK-MED ONE Stop: 11/19/19 08:15 Fentanyl (Sublimaze) 50 mcg IVPUSH Q5M PRN PRN Reason: Pain Stop: 11/19/19 18:00 Hydromorphone HCl (Dilaudid) 0.5 mg IVPUSH Q10M PRN PRN Reason: Pain (severe 7-10) Stop: 11/19/19 18:00 Lactated Ringer's (Ringers, Lactated) 1,000 mls @ 125 mls/hr IV ASDIRECTED ANKUR Stop: 11/19/19 23:00 Last Admin: 11/19/19 08:47 Dose: 125 mls/hr Lidocaine HCl (Xylocaine-Mpf 1%) Confirm Administered Dose 4 mls @ as directed .ROUTE .STK-MED ONE Stop: 11/19/19 08:14 Lactated Ringer's (Ringers, Lactated) Confirm Administered Dose 1,000 mls @ as directed .ROUTE .STK-MED ONE Stop: 11/19/19 08:14 Ketorolac Tromethamine (Toradol) Confirm Administered Dose 15 mg .ROUTE .STK- MED ONE Stop: 11/19/19 08:15 Lidocaine/Epinephrine (Xylocaine 1% With Epinephrine 1:100,000) Confirm Administered Dose 20 ml .ROUTE .STK-MED ONE Stop: 11/19/19 08:20 Last Admin: 11/19/19 09:57 Dose: 3 ml Lidocaine/Sodium Bicarbonate (Buffered Lidocaine 1% In Ns 8.4%) 0.25 ml IDERM ONETIME PRN PRN Reason: Prior to IV Start Stop: 11/19/19 18:00 Last Admin: 11/19/19 08:47 Dose: 0.25 ml Midazolam HCl (Versed 1 Mg/Ml) Confirm Administered Dose 2 mg .ROUTE .STK-MED ONE Stop: 11/19/19 08:15 Ondansetron HCl (Zofran) Confirm Administered Dose 4 mg .ROUTE .STK-MED ONE Stop: 11/19/19 08:14 Ondansetron HCl (Zofran) 4 mg IVPUSH ONETIME PRN PRN Reason: Nausea/Vomiting Stop: 11/19/19 18:00 Polyethylene Glycol (Miralax) 17 gm PO ONETIME ONE Stop: 11/19/19 16:16 Last Admin: 11/19/19 16:58 Dose: 17 gm Propofol (Diprivan 20 Ml) Confirm Administered Dose 400 mg .ROUTE .STK-MED ONE Stop: 11/19/19 08:15 Rocuronium [place] (Zemuron) Confirm Administered Dose 50 mg .ROUTE .STK-MED ONE Stop: 11/19/19 08:14 Sodium Chloride (Saline Flush) 10 ml FLUSH ASDIRECTED PRN PRN Reason: Keep Vein Open Stop: 11/19/19 18:00 Sodium Chloride (Normal Saline) Confirm Administered Dose 50 ml .ROUTE .STK-MED ONE Stop: 11/19/19 08:20 Last Admin: 11/19/19 09:57 Dose: 12 ml
[2019-11-20] MEDS: Docusate Sodium 100 MG Cap PO SCH (08:09)
[2019-11-20 08:14] VITALS: PULSE 60
[2019-11-20] MEDS ORDERED: Vitamin B Complex With Vitamin C Cap PO SCH (09:00)
[2019-11-20] MEDS ORDERED: Calcium Carbonate/Vitamin D3 600 MG-200 Units Tab PO SCH (09:00)
[2019-11-20] MEDS ORDERED: amLODIPine 5 MG Tab PO SCH (09:00)
[2019-11-20] MEDS ORDERED: Saccharomyces Boulardii (Probiotic) 250 MG Cap PO SCH (09:00)
[2019-11-20] MEDS ORDERED: Polyethylene Glycol 3350 Powder 17 GM Packet PO SCH (09:00)
[2019-11-20] MEDS ORDERED: Multivitamins,Therapeutic Tab PO SCH (09:00)
[2019-11-20 12:14] VITALS: BP 129/55
== END 2019-11-20 11:27 | disposition home or self-care (01) ==
LOC: JD.MS 08:07 → JD.SDS 08:07
PROVIDERS: ATTEND Obstetrics & Gynecology
DX: N81.6 Rectocele (principal); N81.10 Cystocele, unspecified; N95.2 Postmenopausal atrophic vaginitis; I10 Essential (primary) hypertension; K21.9 Gastro-esophageal reflux disease without esophagitis; E03.9 Hypothyroidism, unspecified; M81.0 Age-related osteoporosis without current pathological fracture; Z87.891 Personal history of nicotine dependence; Z79.899 Other long term (current) drug therapy
CPT/HCPCS: 36415; 57260; 80053; 85025; 86850; 86900; 86901; A9270; J0690; J1100; J1885; J2001; J2405; J2704; J3010; J7050; J7120; 00942; J2250

== ENCOUNTER 2021-10-24 18:34 | Emergency (ER) | payer MEDICARE, OTHER ==
[2021-10-24 18:50] VITALS: BP 170/83; PULSE 71
== END 2021-10-24 21:45 | disposition home or self-care (01) ==
LOC: JD.ED 18:34
DX: K59.00 Constipation, unspecified (principal); I10 Essential (primary) hypertension; Z91.011 Allergy to milk products; Z79.899 Other long term (current) drug therapy; Z87.891 Personal history of nicotine dependence
CPT/HCPCS: 74019; 74019-26; 99284

== ENCOUNTER 2022-07-16 20:49 | Emergency (ER) | payer MEDICARE, OTHER | END 2022-07-16 21:52 | disposition left against medical advice (07) | LOC: JD.ED 20:49 | DX: Z53.21 Procedure and treatment not carried out due to patient leaving prior to being seen by health care provider (principal) ==

== ENCOUNTER 2024-07-13 20:20 | Emergency (ER) | payer MEDICARE, OTHER ==
[2024-07-13 20:53] VITALS: PULSE 98
[2024-07-13 21:59] LABS: BASOPHILS PERCENT AUTO 0.8 % (0.0-1.0); EOSINOPHILS ABSOLUTE AUTO 0.1 K/mm3 (0.0-0.4); HEMATOCRIT 38.3 % (37.0-47.0); HEMOGLOBIN 13.5 gm/dl (12.0-16.0); IMMATURE GRAN ABSOLUTE AUTO 0.01 K/mm3 (0.00-0.05); IMMATURE GRAN PERCENT AUTO 0.2 % (0.0-0.4); LYMPHOCYTES ABSOLUTE AUTO 1.1 K/mm3 (1.0-4.8); LYMPHOCYTES PERCENT AUTO 22.3 % (24.0-44.0); MEAN CORPUSCULAR HEMOGLOBIN 33.4 pg (28.0-32.0); MEAN CORPUSCULAR HGB CONC 35.2 g/dl (32.0-36.0); MEAN CORPUSCULAR VOLUME 94.8 fl (83.0-99.0); MEAN PLATELET VOLUME 9.2 fl (9.4-12.3); MONOCYTES ABSOLUTE AUTO 0.5 K/mm3 (0.0-0.8); MONOCYTES PERCENT AUTO 9.9 % (0.0-8.0); NEUTROPHILS ABSOLUTE AUTO 3.3 K/mm3 (1.8-7.7); NEUTROPHILS PERCENT AUTO 65.8 % (41.0-71.0); PLATELET COUNT,PLT 158 K/mm3 (150-400); RED BLOOD CELL COUNT 4.04 M/mm3 (4.10-5.30); WHITE BLOOD CELL COUNT,WBC 5.07 K/mm3 (3.9-11.3)
[2024-07-13 22:20] LABS: A/G RATIO 1.2 (1-2); ALBUMIN 3.4 g/dl (3.4-5.0); ANION GAP 8.1 (5-15); BILIRUBIN TOTAL 0.4 mg/dL (0.2-1.0); CALCIUM 9.2 mg/dL (8.5-10.1); CREATININE 0.8 mg/dL (0.55-1.02); EST CRCL DRUG DOSING (CG) 39.76 mL/min; POTASSIUM,K 4.1 mEq/L (3.5-5.1); PROTEIN TOTAL,TP 6.2 g/dl (6.4-8.2)
[2024-07-13 22:28] LABS: APPEARANCE,URINE CLEAR (Clear); BILIRUBIN,URINE NEGATIVE (Negative); COLOR,URINE YELLOW (Yellow); GLUCOSE,URINE NEGATIVE (Negative); KETONES,URINE NEGATIVE (Negative); LEUKOCYTE ESTERASE,URINE NEGATIVE (Negative); NITRITE,URINE NEGATIVE (Negative); OCCULT BLOOD,URINE NEGATIVE (Negative); PROTEIN,URINE NEGATIVE (Negative); UROBILINOGEN,URINE 0.2 (0.2-1.0)
[2024-07-13 23:21] VITALS: BP 108/96
== END 2024-07-13 23:10 | disposition home or self-care (01) ==
LOC: JD.ED 20:20
DX: R41.841 Cognitive communication deficit (principal); R47.81 Slurred speech; I10 Essential (primary) hypertension; Z91.011 Allergy to milk products; Z79.890 Hormone replacement therapy; Z79.899 Other long term (current) drug therapy; Z90.710 Acquired absence of both cervix and uterus
CPT/HCPCS: 36415; 80053; 81003; 85025; 99284